=== PATIENT | male | born 1940 | race Two or more races ===

== ENCOUNTER 2020-07-13 14:45 | Inpatient (IN) | payer MEDICARE ==
[~2020-07-13] VITALS: Ht 175.3 cm; Wt 73.5 kg
[2020-07-13 17:02] LABS: BASOPHILS % 0.9 % (0.0-2.0); EOSINOPHILS % 1.2 % (0.0-5.0); HEMATOCRIT. 40.5 % (42.0-52.0); HEMOGLOBIN. 13.6 g/dL (14.0-18.0); MEAN CORPUSCULAR HEMOGLOBIN 30.2 pg (28.0-32.0); MEAN CORPUSCULAR VOLUME 89.9 fL (80.0-94.0); MEAN PLATELET VOLUME 7.4 fl (7.4-10.4); NEUTROPHILS % 65.9 % (40.0-76.0); PLATELET 190 x1000/uL (130-400); RED CELL DISTRIBUTION WIDTH 13.7 % (11.6-14.6)
[2020-07-13 17:04] LABS: CHLORIDE 107 mEq/L (98-107)
[2020-07-13 19:51] LABS: CLARITY URINE CLEAR (CLEAR); COLOR URINE YELLOW (YELLOW); KETONES URINE NEGATIVE (NEGATIVE); LEUKOCYTE ESTERASE URINE NEGATIVE (NEGATIVE); NITRITE URINE NEGATIVE (NEGATIVE); OCCULT BLOOD URINE 2+ (NEGATIVE); PROTEIN URINE 2+ (NEGATIVE); SPECIFIC GRAVITY URINE 1.018 (1.005-1.030)
[2020-07-13 20:12] LABS: *BENZODIAZEPINES SCREEN URINE NEGATIVE (NEGATIVE); *COCAINE SCREEN URINE NEGATIVE (NEGATIVE); METHADONE URINE SCREEN NEGATIVE (NEGATIVE)
[2020-07-13 20:13] LABS: *AMPHETAMINES SCREEN URINE NEGATIVE (NEGATIVE); *BARBITURATES SCREEN URINE NEGATIVE (NEGATIVE); CANNABINOID URINE SCREEN NEGATIVE (NEGATIVE); OPIATES URINE SCREEN NEGATIVE (NEGATIVE); PHENCYCLIDINE URINE SCREEN NEGATIVE (NEGATIVE)
[2020-07-13] MEDS ORDERED: HALOPERIDOL LACTATE 5MG/ML VIAL IM ONE (20:45)
[2020-07-14] VITALS (7 sets, daily range): BP systolic 100–179; BP diastolic 64–91
[2020-07-14] MEDS ORDERED: DEXT 5%/0.45% NACL 1000ML 1,000 ML IV SCH (03:00)
[2020-07-14 04:27] LABS: EOSINOPHILS % 3.3 % (0.0-5.0); HEMATOCRIT. 41.2 % (42.0-52.0); HEMOGLOBIN. 13.8 g/dL (14.0-18.0); LYMPHOCYTES % 26.9 % (20.0-50.0); MEAN CORPUSCULAR HEMOGLOBIN 30.2 pg (28.0-32.0); MEAN PLATELET VOLUME 7.1 fl (7.4-10.4); MONOCYTES % 12.5 % (2.0-8.0); NEUTROPHILS % 56.3 % (40.0-76.0); PLATELET 184 x1000/uL (130-400); RED BLOOD CELL COUNT 4.58 mill/uL (4.7-6.1); RED CELL DISTRIBUTION WIDTH 13.6 % (11.6-14.6)
[2020-07-14 04:41] LABS: CHLORIDE 107 mEq/L (98-107)
[2020-07-14 04:54] LABS: T4 FREE 1.16 ng/dL (0.76-1.46)
[2020-07-14] MEDS: CLONIDINE 0.1MG TABLET PO PRN (05:54)
[2020-07-14] MEDS: ENOXAPARIN 40MG/0.4ML SYR SUBCUT SCH (08:23)
[2020-07-14] MEDS: ASPIRIN 81MG TABLET PO SCH (08:23)
[2020-07-15] VITALS: BP 154/80
[2020-07-15 04:00] VITALS: BP 167/79
[2020-07-15] MEDS: CLONIDINE 0.1MG TABLET PO PRN (04:43)
[2020-07-15 08:00] VITALS: BP 152/77
[2020-07-15] MEDS: ASPIRIN 81MG TABLET PO SCH (08:39)
[2020-07-15] MEDS: ENOXAPARIN 40MG/0.4ML SYR SUBCUT SCH (08:40)
[2020-07-15 12:00] VITALS: BP 139/74
[2020-07-15 16:00] VITALS: BP 138/77
[2020-07-15 20:00] VITALS: BP 155/82
[2020-07-16] VITALS: BP 153/88
[2020-07-16 04:00] VITALS: BP_SYST 171; BP_SYST 183; BP_DIAS 78; BP_DIAS 93
[2020-07-16 08:00] VITALS: BP 139/79
[2020-07-16] MEDS: ENOXAPARIN 40MG/0.4ML SYR SUBCUT SCH (08:42)
[2020-07-16] MEDS: ASPIRIN 81MG TABLET PO SCH (08:43)
[2020-07-16 11:10] VITALS: BP_SYST 136; BP_SYST 139; BP_DIAS 88; BP_DIAS 91; BP_DIAS 96
[2020-07-16] MEDS: AMLODIPINE 2.5MG TABLET PO SCH (12:36)
[2020-07-16] MEDS ORDERED: LACTULOSE 20G/30ML UDC PO PRN (14:30)
[2020-07-16] MEDS ORDERED: DIPHENHYDRAMINE 50MG/ML VIAL IV PRN (14:30)
[2020-07-16] MEDS ORDERED: LORAZEPAM 2MG/ML CPJ IV PRN (14:30)
[2020-07-16] MEDS ORDERED: HYDROCODONE/ACETAMINOPHEN 5/325MG TABLET PO PRN (14:30)
[2020-07-16] MEDS ORDERED: IPRATROPIUM/ALBUTEROL 0.5-3(2.5)MG/3ML NEB HHN PRN (14:30)
[2020-07-16] MEDS ORDERED: POTASSIUM CHLORIDE 20MEQ TABLET SR PO SCH (14:45)
[2020-07-16 16:00] VITALS: BP 144/84
[2020-07-16 20:00] VITALS: BP_SYST 158; BP_SYST 161; BP_SYST 163; BP_DIAS 81; BP_DIAS 83; BP_DIAS 96
[2020-07-16] MEDS: FAMOTIDINE 20MG TABLET PO SCH (20:19)
[2020-07-17] VITALS: BP 174/94
[2020-07-17] MEDS: HYDRALAZINE HCL 25MG TABLET PO PRN ×2 (00:46→13:07)
[2020-07-17 04:00] VITALS: BP 148/85
[2020-07-17 07:59] VITALS: BP 152/87
[2020-07-17] MEDS: ENOXAPARIN 40MG/0.4ML SYR SUBCUT SCH (08:15)
[2020-07-17] MEDS: AMLODIPINE 2.5MG TABLET PO SCH ×2 (08:16→20:47)
[2020-07-17] MEDS: ASPIRIN 81MG TABLET PO SCH (08:17)
[2020-07-17 08:35] LABS: BASOPHILS % 0.8 % (0.0-2.0); EOSINOPHILS % 3.1 % (0.0-5.0); HEMOGLOBIN. 14.9 g/dL (14.0-18.0); LYMPHOCYTES % 20.2 % (20.0-50.0); MEAN CORPUSCULAR HEMOGLOBIN 30.7 pg (28.0-32.0); MEAN CORPUSCULAR VOLUME 92.7 fL (80.0-94.0); MEAN PLATELET VOLUME 7.3 fl (7.4-10.4); MONOCYTES % 12.8 % (2.0-8.0); NEUTROPHILS % 63.1 % (40.0-76.0); PLATELET 195 x1000/uL (130-400); RED BLOOD CELL COUNT 4.86 mill/uL (4.7-6.1); RED CELL DISTRIBUTION WIDTH 13.8 % (11.6-14.6)
[2020-07-17 08:49] LABS: CHLORIDE 104 mEq/L (98-107)
[2020-07-17 09:17] LABS: VITAMIN B12 SERUM 532 pg/mL (211-911)
[2020-07-17 12:00] VITALS: BP 170/86
[2020-07-17 16:00] VITALS: BP_SYST 158; BP_SYST 162; BP_DIAS 91
[2020-07-17 20:00] VITALS: BP 171/111
[2020-07-17] MEDS: MEMANTINE HCL 5MG TABLET PO SCH (20:47)
[2020-07-17] MEDS: ATORVASTATIN CALCIUM 20MG TABLET PO SCH (20:47)
[2020-07-17] MEDS: FAMOTIDINE 20MG TABLET PO SCH (20:47)
[2020-07-18] VITALS: BP 144/88
[2020-07-18 04:00] VITALS: BP 163/83
[2020-07-18] MEDS: HYDRALAZINE HCL 25MG TABLET PO PRN (04:42)
[2020-07-18 06:37] LABS: BASOPHILS % 0.9 % (0.0-2.0); HEMATOCRIT. 44.3 % (42.0-52.0); HEMOGLOBIN. 14.7 g/dL (14.0-18.0); LYMPHOCYTES % 20.8 % (20.0-50.0); MEAN CORPUSCULAR VOLUME 90.7 fL (80.0-94.0); MEAN PLATELET VOLUME 7.3 fl (7.4-10.4); NEUTROPHILS % 63.3 % (40.0-76.0); PLATELET 196 x1000/uL (130-400); RED BLOOD CELL COUNT 4.88 mill/uL (4.7-6.1); RED CELL DISTRIBUTION WIDTH 13.5 % (11.6-14.6)
[2020-07-18 06:45] LABS: CHLORIDE 104 mEq/L (98-107)
[2020-07-18 08:00] VITALS: BP 165/89
[2020-07-18] MEDS: ENOXAPARIN 40MG/0.4ML SYR SUBCUT SCH (08:48)
[2020-07-18] MEDS: AMLODIPINE 2.5MG TABLET PO SCH (08:49)
[2020-07-18] MEDS: MEMANTINE HCL 5MG TABLET PO SCH ×2 (08:50→20:10)
[2020-07-18] MEDS: ASPIRIN 81MG TABLET PO SCH (08:55)
[2020-07-18] MEDS ORDERED: AMLODIPINE 2.5MG TABLET PO SCH (09:00)
[2020-07-18 12:00] VITALS: BP 133/90
[2020-07-18] MEDS: LEVOFLOXACIN 500MG TABLET PO SCH (13:43)
[2020-07-18 16:00] VITALS: BP 130/81
[2020-07-18 20:00] VITALS: BP 147/86
[2020-07-18] MEDS: ATORVASTATIN CALCIUM 20MG TABLET PO SCH (20:10)
[2020-07-18] MEDS: AMLODIPINE 5MG TABLET PO SCH (20:11)
[2020-07-18] MEDS: FAMOTIDINE 20MG TABLET PO SCH (20:11)
[2020-07-19] VITALS (7 sets, daily range): BP systolic 126–155; BP diastolic 73–86
[2020-07-19 06:49] LABS: BASOPHILS % 0.6 % (0.0-2.0); EOSINOPHILS % 3.3 % (0.0-5.0); HEMATOCRIT. 43.1 % (42.0-52.0); HEMOGLOBIN. 14.3 g/dL (14.0-18.0); LYMPHOCYTES % 23.9 % (20.0-50.0); MEAN CORPUSCULAR HEMOGLOBIN 30.1 pg (28.0-32.0); MEAN CORPUSCULAR VOLUME 90.9 fL (80.0-94.0); MEAN PLATELET VOLUME 7.4 fl (7.4-10.4); MONOCYTES % 12.9 % (2.0-8.0); NEUTROPHILS % 59.3 % (40.0-76.0); PLATELET 202 x1000/uL (130-400); RED BLOOD CELL COUNT 4.74 mill/uL (4.7-6.1); RED CELL DISTRIBUTION WIDTH 13.5 % (11.6-14.6)
[2020-07-19] MEDS: LEVOFLOXACIN 500MG TABLET PO SCH (09:54)
[2020-07-19] MEDS: MEMANTINE HCL 5MG TABLET PO SCH ×2 (09:54→20:19)
[2020-07-19] MEDS: ASPIRIN 81MG TABLET PO SCH (09:54)
[2020-07-19] MEDS: ENOXAPARIN 40MG/0.4ML SYR SUBCUT SCH (09:55)
[2020-07-19] MEDS: AMLODIPINE 5MG TABLET PO SCH ×2 (09:55→20:12)
[2020-07-19] MEDS ORDERED: SODIUM CHLORIDE 0.45% 1,000 ML IV SCH (14:30)
[2020-07-19] MEDS: ATORVASTATIN CALCIUM 20MG TABLET PO SCH (20:12)
[2020-07-19] MEDS: FAMOTIDINE 20MG TABLET PO SCH (20:13)
== END 2020-07-19 21:18 | DRG 64 ==
LOC: ER 14:45 → 5WST 23:51 → ENRESERV 07-14 00:52 → 5WST 07-15 03:58
PROVIDERS: ADMIT Internal Medicine; ATTEND Internal Medicine
PROC: 4A00X4Z Measurement of Central Nervous Electrical Activity, External Approach (ICD-10-PCS; principal; 2020-07-17)
DX: I63.9 Cerebral infarction, unspecified (principal); G93.41 Metabolic encephalopathy; I50.33 Acute on chronic diastolic (congestive) heart failure; N17.9 Acute kidney failure, unspecified; R17 Unspecified jaundice; E44.1 Mild protein-calorie malnutrition; E86.0 Dehydration; I44.1 Atrioventricular block, second degree; I11.0 Hypertensive heart disease with heart failure; E03.9 Hypothyroidism, unspecified; E87.5 Hyperkalemia; D64.9 Anemia, unspecified; Z20.828 Contact with and (suspected) exposure to other viral communicable diseases; Z95.2 Presence of prosthetic heart valve; V89.2XXA Person injured in unspecified motor-vehicle accident, traffic, initial encounter; Y92.410 Unspecified street and highway as the place of occurrence of the external cause; Z68.23 Body mass index [BMI] 23.0-23.9, adult; Y93.89 Activity, other specified; Y99.8 Other external cause status; R00.1 Bradycardia, unspecified; R50.9 Fever, unspecified
CPT/HCPCS: 36415; 70551; 71045; 80048; 80053; 80061; 80076; 80305; 80320; 81003; 82140; 82607; 82962; 83735; 83880; 84145; 84439; 84443; 84481; 84484; 85025; 86592; 87426; 92523; 93005; 93306; 93880; 93970; 95816; 97116; 97162; 97166; 97530; 97535; 99285; A6261; C1893; J1630; J1650; J2060; A4315; G0480